=== PATIENT | female | born 1965 | race Caucasian/White ===

== ENCOUNTER 2017-01-04 21:22 | Inpatient (IN) | payer MEDICAID ==
[~2017-01-04] VITALS: Ht 157.5 cm; Wt 128.8 kg
[2017-01-04 22:32] LABS: BASOPHIL % 0.5 % (0-2); PLATELET COUNT 266 x10^3mcL (130-400)
[2017-01-04 22:38] LABS: UA SPECIFIC GRAVITY 1.025 (1.005-1.035); microscopic required? YES; urine erythrocyte NEGATIVE (NEGATIVE)
[2017-01-04 22:40] LABS: RED CELL DISTRIBUTION WIDTH 14.8 % (11.5-14.5)
[2017-01-04 22:49] LABS: CARBON DIOXIDE 29.8 mmol/L (21-32); CREATININE SERUM 1.5 mg/dL (0.6-1.0); POTASSIUM SERUM 4.7 mmol/L (3.5-5.1)
[2017-01-04 22:54] LABS: ALBUMIN 3.8 g/dL (3.4-5.0); BILIRUBIN TOTAL 0.5 mg/dL (0.20-1.00); TOTAL PROTEIN, SERUM 7.7 g/dL (6.4-8.2)
[2017-01-05] VITALS (7 sets, daily range): BP systolic 94–142; BP diastolic 56–94
[2017-01-05] MEDS ORDERED: GLU500 PO (01:11)
[2017-01-05] MEDS ORDERED: LISINOPRIL20 MG PO (01:11)
[2017-01-05 02:51] LABS: HDL CHOLESTEROL 36 mg/dL (40-60); MAGNESIUM 1.7 mg/dL (1.8-2.4); PHOSPHOROUS 3.1 mg/dL (2.5-4.9); T3 TOTAL 0 ng/mL
[2017-01-05 02:52] LABS: CHOLESTEROL 510 mg/dL (<200); CHOLESTEROL/HDL RATIO 14.2; TRIGLYCERIDES 712 mg/dL (<150)
[2017-01-05 02:53] LABS: FREE T4 0.16 ng/dL (0.76-1.46)
[2017-01-05 02:54] LABS: FREE THYROXINE INDEX 0.1 ug/dL (1.4-4.5); T4(THYROXINE) < 0.5 ug/dL (4.7-13.3)
[2017-01-05 06:05] LABS: BASOPHIL % 0.4 % (0-2); PLATELET COUNT 244 x10^3mcL (130-400)
[2017-01-05 06:16] LABS: CALCIUM 7.5 mg/dL (8.5-10.1); CARBON DIOXIDE 22.1 mmol/L (21-32); CREATININE SERUM 1.1 mg/dL (0.6-1.0); MAGNESIUM 1.5 mg/dL (1.8-2.4); POTASSIUM SERUM 3.6 mmol/L (3.5-5.1)
[2017-01-05 06:47] LABS: RED CELL DISTRIBUTION WIDTH 14.7 % (11.5-14.5)
[2017-01-05 07:36] LABS: AMPHETAMINE QUAL UR NONE DETECTED (NEG <=1000)
[2017-01-05 07:50] LABS: T3 TOTAL 0.02 ng/mL
[2017-01-05 07:58] LABS: FREE T4 0.14 ng/dL (0.76-1.46)
[2017-01-05 08:06] LABS: FREE THYROXINE INDEX 0.1 ug/dL (1.4-4.5); T4(THYROXINE) < 0.5 ug/dL (4.7-13.3)
[2017-01-06 06:14] VITALS: BP 96/63
[2017-01-06 07:09] LABS: BASOPHIL % 0.7 % (0-2); PLATELET COUNT 240 x10^3mcL (130-400); RED CELL DISTRIBUTION WIDTH 14.9 % (11.5-14.5)
[2017-01-06 07:11] LABS: CALCIUM 7.9 mg/dL (8.5-10.1); CARBON DIOXIDE 24.1 mmol/L (21-32); CHLORIDE SERUM 104 mmol/L (98-107); CREATININE SERUM 0.9 mg/dL (0.6-1.0); GFR1 > 60 mL/min; GLUCOSE SERUM 212 mg/dL (74-106); MAGNESIUM 2.1 mg/dL (1.8-2.4); PHOSPHOROUS 3.2 mg/dL (2.5-4.9); POTASSIUM SERUM 3.9 mmol/L (3.5-5.1); SODIUM SERUM 136 mmol/L (136-145)
[2017-01-06 08:56] VITALS: BP 124/82
[2017-01-06 13:02] VITALS: BP 123/85
[2017-01-06 16:16] VITALS: BP 128/88
[2017-01-06 19:42] VITALS: BP 116/85
[2017-01-06 22:18] VITALS: BP 116/69
[2017-01-07 05:29] VITALS: BP 120/74
[2017-01-07 05:53] LABS: BASOPHIL % 0.5 % (0-2); PLATELET COUNT 239 x10^3mcL (130-400)
[2017-01-07 06:20] LABS: CALCIUM 8.4 mg/dL (8.5-10.1); CARBON DIOXIDE 25.4 mmol/L (21-32); CHLORIDE SERUM 104 mmol/L (98-107); CREATININE SERUM 0.8 mg/dL (0.6-1.0); GFR1 > 60 mL/min; GLUCOSE SERUM 141 mg/dL (74-106); PHOSPHOROUS 3.6 mg/dL (2.5-4.9); POTASSIUM SERUM 3.7 mmol/L (3.5-5.1); SODIUM SERUM 136 mmol/L (136-145)
[2017-01-07 06:39] LABS: RED CELL DISTRIBUTION WIDTH 14.6 % (11.5-14.5)
[2017-01-07 09:36] VITALS: BP 137/95
[2017-01-07 13:38] VITALS: BP 131/96
[2017-01-07 14:31] VITALS: BP 131/96
[2017-01-07] MEDS ORDERED: ZOFRAN ODT8 MG PO (15:26)
[2017-01-07] MEDS ORDERED: ULTRAM50 MG PO (15:35)
== END 2017-01-07 16:10 | disposition home or self-care (01) | DRG 282 ==
LOC: ED 21:22 → DU 01-05 02:07 → MU 01-05 02:07 → DU 01-05 02:50 → MU 01-06 07:04
PROVIDERS: Emergency Medicine; Family Medicine; ADMIT Family Medicine
DX: K85.90 Acute pancreatitis without necrosis or infection, unspecified (principal); N17.0 Acute kidney failure with tubular necrosis; I42.9 Cardiomyopathy, unspecified; D68.69 Other thrombophilia; E44.0 Moderate protein-calorie malnutrition; E11.65 Type 2 diabetes mellitus with hyperglycemia; E87.8 Other disorders of electrolyte and fluid balance, not elsewhere classified; N18.3 Chronic kidney disease, stage 3 (moderate); Z68.43 Body mass index [BMI] 50.0-59.9, adult; E83.42 Hypomagnesemia; K76.0 Fatty (change of) liver, not elsewhere classified; E87.1 Hypo-osmolality and hyponatremia; N39.0 Urinary tract infection, site not specified; E03.9 Hypothyroidism, unspecified; E78.5 Hyperlipidemia, unspecified; E83.51 Hypocalcemia; E66.01 Morbid (severe) obesity due to excess calories; I12.9 Hypertensive chronic kidney disease with stage 1 through stage 4 chronic kidney disease, or unspecified chronic kidney disease; Z79.84 Long term (current) use of oral hypoglycemic drugs
CPT/HCPCS: 80307; 82962; 83880; 84439; C9113; J0500; J0696; J1815; J1885; J2270; J3475; J7030; Q0092; Q0162

== ENCOUNTER 2019-05-22 12:58 | Emergency (ER) | payer SELFPAY ==
[~2019-05-22] VITALS: Ht 160 cm; Wt 83.0 kg
[~2019-05-22 12:58] MED LIST: GLU500 PO; LISINOPRIL20 MG PO; ULTRAM50 MG PO; ZOFRAN ODT8 MG PO
[2019-05-22 13:12] VITALS: Ht 160 cm; Wt 83.0 kg
[2019-05-22 14:00] LABS: BASOPHIL % 0.3 % (0-2); PLATELET COUNT 331 x10^3mcL (130-400); RED CELL DISTRIBUTION WIDTH 13.7 % (11.5-14.5)
[2019-05-22 14:11] LABS: CHLORIDE SERUM 104 mmol/L (98-107); CREATININE SERUM 0.9 mg/dL (0.6-1.0); GFR1 > 60 mL/min; GLUCOSE SERUM 222 mg/dL (74-106); POTASSIUM SERUM 3.8 mmol/L (3.5-5.1); SODIUM SERUM 139 mmol/L (136-145)
[2019-05-22 14:15] LABS: ALBUMIN 3.4 g/dL (3.4-5.0); ALKALINE PHOSPHATASE 123 U/L (46-116); ALT/SGPT 49 U/L (14-59); AST/SGOT 29 U/L (15-37); BILIRUBIN TOTAL 0.38 mg/dL (0.20-1.00); LIPASE 84 IU/L (73-393); TOTAL PROTEIN, SERUM 7.2 g/dL (6.4-8.2)
[2019-05-22 15:27] VITALS: BP 123/75
== END 2019-05-22 15:27 | disposition home or self-care (01) ==
LOC: ED 12:58
PROVIDERS: Emergency Medicine
DX: R10.11 Right upper quadrant pain (principal)
CPT/HCPCS: J2270; J2405; J7030; Q0092